=== PATIENT | male | born 1945 | race African-American/Black ===

== ENCOUNTER → 2017-12-16 | Outpatient (CLI) | payer OTHER ==
[~2017-12-16] VITALS: Ht 175.3 cm; Wt 92.1 kg
[~2017-12-16] MED LIST: ANTI-DIARRHEA2 MG PO; ASPIRIN EC81 M1 PO; CENTRUM SILVER1 EAC4 PO; CIPROFLOXACIN500 M3 PO; CIPROFLOXIN HC2.5 M1 OPHTHALMIC; FISH OIL 1,001000 M2 PO; FISHOIL; HYDROCODONE-AP1 EAC6 PO; ISTALOL; LANSOPRAZOLE30 MG; LISINOPRIL10 MG PO; LISINOPRIL20 MG; NAPROSYN500 MG OR; OMEPRAZOLE40 MG PO; PEPCID40 MG PO; PRED FORTE 1% EY5 M1 OP; PREVACID30 MG PO; PROSCAR 5MG TABL5 M1 PO; RAPAFLO4 MG PO; RAPAFLO8 MG PO; SIMBRINZA 1%-0.28 ML OP; SIMVASTATIN20 MG; TAMSULOSIN HCL0.4 MG OR; THERA-M CAPLET1 EACH OR; ZOCOR20 MG PO; ZOFRAN4 MG PO
--- NOTE | ~2017-12-16 | P ---
[facility] [place] [address] PROCEDURE REPORT Name: ANISHA SALAZAR Laurent Room #: REG STACYSarika Mendel#: [id number] Admission: 12/16/17 Attend Phys: Juan Luis Dai Discharge: Date of : 43 Report #: [id number] THIS REPORT FOR: //name// CC: Juan Luis Benedict DATE OF SERVICE: 12/16/2017 PROCEDURE PERFORMED: Colonoscopy with biopsies. HISTORY OF PRESENT ILLNESS: The patient is a 72-year-old male who has a history of colon polyps 5 years ago, here for routine followup. Denies any symptoms. No family history of colon cancer. DESCRIPTION OF PROCEDURE: The risks and benefits of the procedure were explained to the patient, those risks including but not limited to bleeding, perforation, the risk of sedation. He understood these risks and gave informed consent. Sedation was given using propofol per Anesthesia. Next, a digital rectal exam was initially performed, which was normal. Next, using a standard Olympus colonoscope, the scope was placed in the patient's anus and advanced under direct vision to the cecum. The overall prep was excellent. Cecum and ileocecal valve normal in appearance. Ascending and transverse colon were normal. In the descending colon, 3 mm sessile polyp was noted. This was removed with cold forceps, otherwise normal. Multiple diverticula were noted in the sigmoid colon, also noted was a 4 mm sessile polyp, also removed by cold forceps. The rectal mucosa was normal. On retroflexion, no abnormalities were noted. The scope was then withdrawn and the procedure terminated. The patient tolerated the procedure well. IMPRESSION: 1. Two small colonic polyps. 2. Sigmoid diverticulosis. 3. Otherwise normal colonoscopy. RECOMMENDATIONS: 1. Await biopsy results. 2. If polyps are hyperplastic, repeat in 10 years; if adenomatous polyp, repeat in 5 years. Thank you for allowing me to participate in his care. <ELECTRONICALLY SIGNED> By: Juan Luis Chopra MD 12/25/17 [id number] Juan Luis Chopra MD /nt
--- NOTE | ~2017-12-16 | S ---
[facility] [place] [address] SURGICAL PATH RPT PROCEDURE Name: ANAYELI SALAZAR Room #: REG ÁNGEL Walsh.#: [id number] Admission: 12/16/17 Date of : 43 Discharge: Report #: [id number] Path Case #: [id number] PATHOLOGY REPORT COLLECTION DATE: 12/16/2017 RECEIVED DATE: 12/16/2017 SUBMITTING PHYS: Dr. Juan Luis Chopra OTHER PHYS: Dr. Babatunde Benedict SPECIMEN(S) RECEIVED: A.Descending colon polyp bx B.Sigmoid colon polyp bx * * * * * * * * * * * * FINAL DIAGNOSIS: A. "Descending colon polyp BX", biopsy: - Hyperplastic polyp. B. "Sigmoid colon polyp BX", biopsy: - Hyperplastic polyp. (CLW:kalee; 12/17/2017) PATHOLOGIST: Malorie Moore M.D. REPORT ELECTRONICALLY SIGNED BY: Malorie Moore M.D. DATE/TIME: 12/17/2017 22:06 * * * * * * * * * * * * GROSS PATHOLOGY: A. Received in formalin labeled "Homero, Anayeli, descending colon polyp BX," is a segment of wheatley soft tissue measuring 0.4 x 0.3 x 0.1 cm in maximum dimension. The specimen is submitted entirely in cassette A1. B. Received in formalin labeled "Homero, Anayeli, sigmoid colon polyp BX," is a segment of wheatley soft tissue measuring 0.3 x 0.2 x 0.1 cm in maximum dimension. The specimen is submitted entirely in cassette B1. (SDY; 12/16/2017) CLINICAL HISTORY: History colon polyps Colon polyps INITIAL CPT CODE(S): A; 35975 B; 62900 Professional services performed by [facility] at [facility] [address] [place] [address] SURGICAL PATH RPT PROCEDURE Name: ANAYELI SALAZAR Room #: REG ÁNGEL Beck#: [id number] Admission: 12/16/17 Date of : 43 Discharge: Report #: [id number] Path Case #: [id number] [address] [facility] [place] [address] Technical services performed by [facility] at [address] [place] [address], [facility] [address] [address]. [facility] [address] [place] [address] PHONE: [phone] DIRECTOR: Maximo Garcia M.D. * * * END OF REPORT * * *
== END | disposition home or self-care (01) ==
LOC: GI 08:21
DX: Z09 Encounter for follow-up examination after completed treatment for conditions other than malignant neoplasm (principal); K63.5 Polyp of colon; K57.30 Diverticulosis of large intestine without perforation or abscess without bleeding; I10 Essential (primary) hypertension; E78.5 Hyperlipidemia, unspecified; K21.9 Gastro-esophageal reflux disease without esophagitis; M19.90 Unspecified osteoarthritis, unspecified site; Z98.890 Other specified postprocedural states; Z86.010 Personal history of colon polyps; Z87.891 Personal history of nicotine dependence; Z79.899 Other long term (current) drug therapy; Z79.82 Long term (current) use of aspirin
CPT/HCPCS: 62110; 62900

== ENCOUNTER → 2018-02-10 | Outpatient (CLI) | payer OTHER | LOC: MRI 10:41 | DX: R41.3 Other amnesia (principal); F03.90 Unspecified dementia, unspecified severity, without behavioral disturbance, psychotic disturbance, mood disturbance, and anxiety ==

== ENCOUNTER → 2018-07-16 | Outpatient (CLI) | payer OTHER | LOC: RAD 12:10 | DX: R06.02 Shortness of breath (principal); R05 Cough ==

== ENCOUNTER → 2019-12-14 | Outpatient (CLI) | payer OTHER | LOC: SJCVC 10:24 | DX: R07.2 Precordial pain (principal); E78.5 Hyperlipidemia, unspecified; I10 Essential (primary) hypertension; E11.9 Type 2 diabetes mellitus without complications ==

== ENCOUNTER → 2019-12-15 | Outpatient (CLI) | payer OTHER | LOC: SJCVCIMAG 09:24 | DX: I08.2 Rheumatic disorders of both aortic and tricuspid valves (principal); I10 Essential (primary) hypertension; R07.9 Chest pain, unspecified; E78.5 Hyperlipidemia, unspecified ==

== ENCOUNTER → 2020-06-18 | Outpatient (CLI) | payer OTHER | LOC: SJCVC 10:33 | PROVIDERS: ATTEND Internal Medicine | DX: I10 Essential (primary) hypertension (principal); E78.5 Hyperlipidemia, unspecified; E11.9 Type 2 diabetes mellitus without complications; R07.2 Precordial pain; I35.0 Nonrheumatic aortic (valve) stenosis; Z79.899 Other long term (current) drug therapy ==

== ENCOUNTER → 2020-09-10 | Outpatient (CLI) | payer OTHER | LOC: CAT 15:40 | PROVIDERS: ATTEND Family Medicine | DX: R41.82 Altered mental status, unspecified (principal) ==

== ENCOUNTER → 2020-12-17 | Outpatient (CLI) | payer OTHER | LOC: SJCVCIMAG 07:18 | PROVIDERS: ATTEND Internal Medicine | DX: R94.31 Abnormal electrocardiogram [ECG] [EKG] (principal); I08.8 Other rheumatic multiple valve diseases; I11.9 Hypertensive heart disease without heart failure; I35.0 Nonrheumatic aortic (valve) stenosis; E78.5 Hyperlipidemia, unspecified; I10 Essential (primary) hypertension; E11.9 Type 2 diabetes mellitus without complications; R07.2 Precordial pain; R09.89 Other specified symptoms and signs involving the circulatory and respiratory systems; K21.9 Gastro-esophageal reflux disease without esophagitis; F12.90 Cannabis use, unspecified, uncomplicated; Z79.84 Long term (current) use of oral hypoglycemic drugs; Z79.82 Long term (current) use of aspirin; Z79.899 Other long term (current) drug therapy ==

== ENCOUNTER → 2021-01-04 | Outpatient (CLI) | payer OTHER | LOC: SJCVCIMAG 01-03 09:43 | PROVIDERS: ATTEND Internal Medicine | DX: I65.23 Occlusion and stenosis of bilateral carotid arteries (principal) ==

== ENCOUNTER → 2021-06-20 | Outpatient (CLI) | payer OTHER | LOC: SJCVC 09:13 | PROVIDERS: ATTEND Internal Medicine | DX: R94.31 Abnormal electrocardiogram [ECG] [EKG] (principal); I35.0 Nonrheumatic aortic (valve) stenosis; E78.5 Hyperlipidemia, unspecified; I10 Essential (primary) hypertension; E11.9 Type 2 diabetes mellitus without complications; K21.9 Gastro-esophageal reflux disease without esophagitis; F12.90 Cannabis use, unspecified, uncomplicated; Z79.82 Long term (current) use of aspirin; Z79.899 Other long term (current) drug therapy; Z79.4 Long term (current) use of insulin ==